=== PATIENT | female | born 1955 | race African-American/Black ===

== ENCOUNTER → 2017-04-27 | Outpatient (CLI) | payer OTHER ==
[2016-07-17 09:28] VITALS: BP 186/91
[~2017-04-27] MED LIST: LISI1TAB5 PO; MULT1TAB97 PO
--- NOTE | 2017-04-27 14:52 | RAD ---
EXAM: Left breast diagnostic mammogram; left breast sonogram. HISTORY: 61-year-old female presents for follow-up evaluation of a nodule within the left breast demonstrated on a prior mammogram and sonogram dated 06/29/2016. Sonographic guided biopsy of this lesion performed 07/17/2016 demonstrated benign findings. However, the pathology findings were deemed non concordant with the imaging findings and excisional biopsy was recommended. TECHNIQUE: Full field digital and spot compression images of the left breast were obtained. Computer aided detection was applied. Sonographic imaging of the left breast targeted to the 12:00 position was also performed. COMPARISON: 06/29/2016 and 07/17/2016 and 05/16/2016 FINDINGS: Breast parenchymal density: Level B - Scattered fibroglandular densities. There is a circumscribed nodule within the posterior 12:00 position of the left breast. This is similar in size compared to the mammogram dated 06/29/2016. The hematoma surrounding the lesion on the study dated 07/17/2016 has resolved. There is a biopsy clip anterior to the nodule. No new suspicious mass, calcification or distortion is seen within the left breast. Sonographic imaging of the left breast demonstrates a 1.6 cm hyperechoic lesion with indistinct margins and posterior shadowing at the 12:00 position 17 cm from the nipple, consistent with the mammographic finding of concern. The sonographic appearance of this lesion is similar compared to the study dated 06/29/2016. No additional lesion is seen. IMPRESSION: 1. 1.6 cm nodule within the posterior 12:00 position of the left breast. This is similar in appearance compared to the prior study dated 05/16/2016. 2. BI-RADS Category 4: Suspicious finding. Despite interval stability of the aforementioned nodule at the 12:00 position, the pathology findings corresponding with biopsy of this lesion on 07/17/2016 are not concordant with the imaging findings and a prior recommendation was made for surgical excision for definitive diagnosis. If the patient or referring physician prefer to defer excisional biopsy, repeat sonographic guided biopsy can be performed to confirm adequate tissue sampling. Alternatively, continued short-term follow-up can be performed. The patient is due for bilateral mammography in 2-3 months.
== END | disposition home or self-care (01) ==
LOC: MAMMO 12:59
PROVIDERS: ATTEND Surgery
DX: N63 Unspecified lump in breast (principal)
CPT/HCPCS: 76641; G0206; 77065

== ENCOUNTER → 2017-06-09 | Outpatient (CLI) | payer OTHER ==
[~2017-06-09] VITALS: Ht 167.6 cm; Wt 103.9 kg
[2017-06-09 09:42] VITALS: BP 158/83
--- NOTE | 2017-06-09 14:36 | RAD ---
EXAM: 1. Ultrasound-guided biopsy of a left breast mass with clip placement. 2. Postclip mammography. HISTORY: Status post biopsy of a left breast mass with discordant results. Rebiopsy is requested. COMPARISON: 04/27/2017. FINDINGS: The procedure along with its risks and benefits were explained to the patient. She agreed to proceed. A timeout procedure was performed. The patient's prior imaging and biopsy were reviewed. The echogenic mass at the left 12:00 position was visualized sonographically. The overlying skin was sterilely prepped and infiltrated with 1% lidocaine for local anesthesia. Under ultrasound guidance, 2 14-gauge core needle specimens were obtained. A postbiopsy clip was placed under ultrasound guidance. Instrumentation was withdrawn and a sterile dressing placed. There were no immediate complications. Digital images were obtained on the left in CC and MLO projections. These demonstrate the new postbiopsy clip within the target mass. IMPRESSION: 1. Successful ultrasound-guided biopsy of a left breast mass at the 12:00 position. 2. The postbiopsy clip corresponds with a target lesion. HUGHD
--- NOTE | 2017-06-10 13:40 | PATHOLOGY ---
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 COMMENT: Sections of the left breast needle biopsy reveal fibrofatty breast tissue showing focal stromal fibrosis containing numerous hemosiderin laden macrophages. There is also a small core of red blood cells. There is no evidence of malignancy. (JPM:pit; 06/10/2017) REPORT ELECTRONICALLY SIGNED BY: Wu Gloria M.D. DATE/TIME: 06/10/2017 13:39 * * * * * * * * GROSS PATHOLOGY: Received in formalin labeled "Darrion Erwin, left breast tissue 12:00," are multiple needle cores of yellow-bruce fibrofatty tissue measuring 1.4 x 0.3 x 0.2 cm in aggregate dimensions. The tissue is submitted in its entirety in cassette A1 through A3. The cold ischemic time is 5 minutes. The total formalin fixation time is 10 hours and 25 minutes. (TSD; 06/09/2017) INITIAL CPT CODE(S): A; 91439 Professional services performed by [facility] [place] [address] Technical services performed by [facility] at [address] [place] [address], [facility] [address], [place] [address]. [facility] Radiology fax: [phone] SPECIMEN(S) RECEIVED: A.Left breast tissue CLINICAL HISTORY: Left breast nodule PATIENT: DARRION ERWIN /AGE: 310/29/1955 (Age: 61) PATIENT #: [id number] ALT CASE #: SPECIMEN COLLECTION DATE: 06/09/2017 SPECIMEN RECEIVED DATE: 06/09/2017 [facility] - [id number] [place] [address] - PHONE: [phone] * * * END OF REPORT * * *
== END | disposition home or self-care (01) ==
LOC: US 13:17
PROVIDERS: ATTEND Surgery
DX: N63.20 Unspecified lump in the left breast, unspecified quadrant (principal)
CPT/HCPCS: 19081; 76942; 88305; C1713; G0206; 77065